=== PATIENT | female | born 1995 | race Caucasian/White ===

== ENCOUNTER → 2024-08-30 08:23 | Outpatient (REF) | payer OTHER, SELFPAY | LOC: HWRAD 08:23 | PROVIDERS: ATTENDING PHYSICIAN Physician Assistant Medical | DX: Z00.00 Encounter for general adult medical examination without abnormal findings (principal); N94.6 Dysmenorrhea, unspecified; R10.84 Generalized abdominal pain | CPT/HCPCS: 76700; 76856 ==